=== PATIENT | male | born 1985 | race Caucasian/White ===

== ENCOUNTER 2017-10-18 18:51 | Emergency (ER) | payer MEDICAID, OTHER ==
[2017-10-18] MEDS ORDERED: CLINDAMYCIN HCL 150 MG CAPSULE PO ONE (20:48)
--- NOTE | 2017-10-18 20:52 | ERNOTE ---
Integumentary HPI - General Presenting Symptoms: rash Time Seen by Provider: 10/18/17 20:24 Source: patient Exam Limitations: no limitations - Immun/Allergies/Home Medications Immunizations: IMMUNIZATION HX Immunizations Up to Date Yes History of Influenza Vaccine No Hx Pneumococcal Vaccination No Allergies/Adverse Reactions: Allergies Allergy/AdvReac Type Severity Reaction Status Date / Time No Known Drug Allergies Allergy Verified 10/18/17 19:14 Home Medications: HOME MEDICATIONS Clindamycin HCl [Cleocin HCl] 300 mg PO QID #40 capsule 10/18/17 [Last Taken Unknown] FLUoxetine HCL [Prozac] 40 mg PO 10/18/17 [Last Taken Unknown] - Pain Pain Score: 5 - History of Present Illness Location: Reports: torso, upper extremity, axillary Quality: Reports: itching, painful Severity: moderate Exposure: Reports: no cause identified Modifying Factors - (Worsens): Reports: prednisone - Patient's Past Medical History Patient History - Medical: Depression Patient History - Cardiac/Respiratory: Coronary Heart Disease, Hypertension, Myocardial Infarction Patient History - Cancer: No Hx of Cancer Patient History - Surgical Procedures: Angioplasty - Social History Living Situations: spouse Smoking Status: Former smoker Have you smoked in the past 12 months: Yes Do you dip or chew tobacco: Yes Smoking Stop Date: 03/12/17 Alcohol Use: none Drug Use: none - Immunizations Immunizations Up to Date: Yes Hx Pneumococcal Vaccination: No History of Influenza Vaccine: No Physical Exam - Physical Exam General Appearance: Present: wd/wn, alert, no apparent distress Head Exam: Present: normal inspection, no evidence of injury Neck: Present: normal inspection, full range of motion Respiratory: Present: no respiratory distress, no accessory muscle use Gastrointestinal/Abdominal: Present: nontender, nondistended, soft Back Exam: Present: normal inspection, normal range of motion Extremity Exam: Present: normal range of motion, no edema Neurological Exam: Present: alert, oriented, normal mood/affect, no motor/ sensory deficits Skin Exam: Present: warm/dry, skin rash - thick irregular plaque in left axilla 6cm x 10 cm. pustule 1cm x 2 cm with surrounding erythema 10 cm x 15 cm left medial arm. Pustules on abdomen and inguinal area. Mild erythema mid abdomen. ED Progress - Vital Signs Vital Signs: Vital Signs 10/18/17 19:04 Temperature 36.8 C Pulse Rate 65 Respiratory 14 Rate Blood Pressure 145/97 O2 Sat by Pulse 96 Oximetry - Progress/Reassessment Chief Complaint: Rash Departure Clinical Impression: Abscess, Cellulitis of arm, left - Departure Disposition: Home self-care Condition: Good Instructions: Abscess, [id number], Cellulitis, Adult, [id number] Additional Instructions: Daily bleach baths for 3-5 days. 1/2 cup bleach in a tub of water, soak up to your neck for 15-20 minutes daily. Be very careful not to get it in your eyes. Referrals: Lilian Jerome ARNP [Primary Care Provider] - Prescriptions: Clindamycin HCl [Cleocin HCl] 300 mg PO QID #40 capsule
[2017-10-18] MEDS ORDERED: CLINDAMYCIN HCL 150 MG CAPSULE ONE (21:05)
[2017-10-18 21:10] VITALS: BP 148/97
== END 2017-10-18 21:12 | disposition home or self-care (01) ==
LOC: ER 18:51
DX: L02.414 Cutaneous abscess of left upper limb (principal); L03.114 Cellulitis of left upper limb; F17.200 Nicotine dependence, unspecified, uncomplicated; F32.9 Major depressive disorder, single episode, unspecified